=== PATIENT | male | born 1955 | race Caucasian/White ===

== ENCOUNTER 2017-06-02 01:10 | Emergency (ER) | payer MEDICAID, OTHER ==
[~2017-06-02] VITALS: Ht 177.8 cm; Wt 77.0 kg
[2017-06-02 01:12] VITALS: BP 107/71
== END 2017-06-02 07:14 | disposition left against medical advice (07) ==
LOC: ER 01:18
DX: F10.129 Alcohol abuse with intoxication, unspecified (principal); J44.9 Chronic obstructive pulmonary disease, unspecified; Y90.9 Presence of alcohol in blood, level not specified
CPT/HCPCS: 99283